=== PATIENT | female | born 1985 | race Caucasian/White ===

== ENCOUNTER 2018-07-15 19:36 | Emergency (ER) | payer MEDICARE ==
[~2018-07-15] VITALS: Ht 162.6 cm; Wt 65.8 kg
[~2018-07-15 19:36] MED LIST: CELEXA 20 MG TA20 M1; NAPROSYN500 MG PO; PREDNISONE 10 M10 M1 PO; PROTONIX40 MG PO; REMICADE 1100 MG/VIA; TOBRAMYCIN SULFA5 ML OP; ULTRAM 50MG TAB50 MG PO; VICODIN 5-5001 EACH PO; ZANTAC 150MG T150 M1 PO
[2018-07-15] MEDS ORDERED: HYDROXYCHLOROQ200 M1 (19:46)
[2018-07-15 20:59] LABS: ABSOLUTE BASOPHILS 0.1 thou/uL (0.0-0.2); ABSOLUTE MONOCYTES 0.9 thou/uL (0.0-1.2); ABSOLUTE NEUTROPHILS 8.6 thou/uL (1.6-8.1); BASOPHILS 0.6 %; EOSINOPHILS 0.2 %; HEMATOCRIT 37.1 % (37.0-47.0); LYMPHOCYTES 23.7 %; MCH 28.8 pg (26.0-34.0); MCHC 32.3 g/dL (28.0-37.0); MCV 89.2 fL (80.0-100.0); MONOCYTES 7.4 %; MPV 6.6 fl. (7.2-11.1); NUCLEATED RBCS 0 /100WBC; PLATELET COUNT* 394 thou/uL (150-400); POLYS 68.1 %; RBC 4.16 mil/uL (4.20-5.00); RDW-CV 17.6 % (10.5-14.5); WBC 12.6 thou/uL (4.0-11.0)
[2018-07-15 21:18] LABS: ALBUMIN 2.7 g/dL (3.4-5.0); CALCIUM 8.4 mg/dL (8.5-10.1); CREATININE 0.9 mg/dL (0.6-1.3); POTASSIUM 3.4 mmol/L (3.5-5.1); TOTAL BILIRUBIN 0.2 mg/dL (<0.1-1.0); TOTAL PROTEIN 7.3 g/dL (6.4-8.2)
[2018-07-15] MEDS ORDERED: NORCO 5-325 TA1 EACH PO (21:33)
[2018-07-15 21:51] LABS: URINE BILIRUBIN NEGATIVE (Negative); URINE BLOOD 2+ (Negative); URINE CLARITY CLEAR; URINE COLOR YELLOW; URINE GLUCOSE-RANDOM NEGATIVE (Negative); URINE KETONES TRACE (Negative); URINE LEUKOCYTES-REFLEX NEGATIVE (Negative); URINE NITRITE-REFLEX NEGATIVE (Negative); URINE PROTEIN NEGATIVE (Negative); URINE SPECIFIC GRAVITY >= 1.030 (1.005-1.030); URINE UROBILINOGEN 0.2 E.U./dl (0.2-1.0)
[2018-07-15 22:04] LABS: SQUAMOUS 4-10 Moderate /LPF (0-3); TRANSITIONAL EPITHEL CELL 0-3 Few /LPF (None Seen); URINE WBC-REFLEX None Seen /HPF (0-5)
[2018-07-15 22:05] LABS: BACTERIA-REFLEX >30 Many /HPF (None Seen); CASTS None Seen /LPF (None Seen); CRYSTALS None Seen /LPF (None Seen); MUCUS 0-3 Light strn/LPF (None Seen)
[2018-07-15] MEDS ORDERED: BACTRIM DS TAB1 EACH PO (22:40)
[2018-07-15] MEDS ORDERED: TRAMADOL 50 MG50 MG PO (22:48)
[2018-07-15 22:56] VITALS: BP 116/72
--- NOTE | 2018-07-16 09:15 | EKG ---
[place] [address] ELECTROCARDIOGRAM REPORT Name: JAYRO TREVINO Room: [facility]#: [id number] Admission: 07/15/18 Attend Phys: Discharge: 07/15/18 Date of : 81 Report #: [id number] THIS REPORT FOR: //name// [facility] ED Test Date: 2018-07-15 Test Time: 20:14:47 Pat Name: JAYRO TREVINO Department: Room: Gender: F [employer] Operator: Eduardo JEAN-BAPTISTE : 1985 Requested By: Geovanna Jimenez Order Number: [id number] MD: Aris Pierre Measurements Intervals [place] Rate: 134 P: 38 KS: 115 QRS: -2 QRSD: 69 T: 2 QT: 294 QTc: 439 Interpretive Statements Sinus tachycardia Left ventricular hypertrophy Compared to ECG 02/02/2010 09:39:19 Left ventricular hypertrophy now present Sinus rhythm no longer present Electronically Signed On 07-16-2018 9:15:33 CDT by Aris Pierre [email or web address] <ELECTRONICALLY SIGNED> By: Aris Pierre MD, [facility] 07/16/18 0915 13 13 Aris Pierre MD, FAC /EPI
== END 2018-07-15 22:56 | disposition home or self-care (01) ==
LOC: M.ERS 19:36
PROVIDERS: Physician Assistant
DX: M54.5 Low back pain (principal); R00.0 Tachycardia, unspecified; N28.1 Cyst of kidney, acquired; Z88.8 Allergy status to other drugs, medicaments and biological substances; Z98.890 Other specified postprocedural states; Z87.442 Personal history of urinary calculi